=== PATIENT | female | born 1935 | race Two or more races ===

== ENCOUNTER 2022-05-09 18:43 | Emergency (ER) | payer OTHER ==
[~2022-05-09] VITALS: Ht 157.5 cm; Wt 50.8 kg
--- NOTE | 2022-05-09 18:50 | NUR ---
cervical collar placed
--- NOTE | 2022-05-09 18:55 | NUR ---
BIB [facility] FOR [facility]ARE FACILITY,C/O NECK PAIN TODAY,DENIES ANY TRAUMA
--- NOTE | 2022-05-09 19:25 | NUR ---
PT TAKEN TO RADIOLOGY FOR CT
--- NOTE | 2022-05-09 19:28 | NUR ---
RECEIVED REPORT FROM KIRIT SAINZ. PATIENT IS AAOX4. ABLE TO MAKE NEEDS KNOWN. WITH SOFT C COLLAR. CAME WITH CC OF NECKPAIN. VITALS CHECKED.
[2022-05-09] MEDS ORDERED: ACETAMINOPHEN 325 MG TABLET ONE (19:29)
[2022-05-09] MEDS ORDERED: ACETAMINOPHEN 325 MG TABLET PO ONE (19:30)
--- NOTE | 2022-05-09 19:48 | NUR ---
PT RETURNED TO ER BED [address]
[2022-05-09] MEDS ORDERED: ACET325C7 PO (20:20)
--- NOTE | 2022-05-09 22:01 | NUR ---
PT GOING BACK TO [facility]. REPORT GIVEN TO CARLOS AT [phone] [facility] ETA: 75-90 MIN
--- NOTE | 2022-05-09 23:37 | NUR ---
[facility] AT BED SIDE TO PE TEACHER THE PT
--- NOTE | 2022-05-09 23:50 | NUR ---
REPORT GIVEN TO EMT NETO OF [facility] [id number]
--- NOTE | 2022-05-10 00:13 | NUR ---
TRANSFERRED TO CARE FACILITY VIA AMBULANCE.
[2022-05-10 00:14] VITALS: BP 112/69
== END 2022-05-10 00:14 ==
LOC: ER 18:46
DX: S16.1XXA Strain of muscle, fascia and tendon at neck level, initial encounter (principal); S00.31XA Abrasion of nose, initial encounter; R51.9 Headache, unspecified; Z79.1 Long term (current) use of non-steroidal anti-inflammatories (NSAID); X58.XXXA Exposure to other specified factors, initial encounter; Y93.89 Activity, other specified; Y92.89 Other specified places as the place of occurrence of the external cause; Y99.8 Other external cause status
CPT/HCPCS: 70450-TC; 72125-TC

== ENCOUNTER 2022-05-25 19:48 | Emergency (ER) | payer OTHER ==
[~2022-05-25] VITALS: Ht 157.5 cm; Wt 59.0 kg
[~2022-05-25 19:48] MED LIST: ACET325C7 PO
[2022-05-25] MEDS ORDERED: ONDANSETRON HCL/PF 4 MG/2 ML VIAL ONE (20:20)
[2022-05-25] MEDS ORDERED: KETOROLAC TROMETHAMINE 15 MG/ML VIAL ONE (20:20)
--- NOTE | 2022-05-25 20:22 | NUR ---
[facility] FOR C/O R FLANK PAIN WITH HX OF KIDNEY STONES. PT AWAKE AND ALERT X4 BREATHING UNABORED 9/10 PAIN. CHANGED INTO GOWN AND PLACED ON MONITOR. MD WAS AT BEDSIDE FOR EVAL.
[2022-05-25] MEDS: IV NS 0.9% 1,000 ML BAG IV ONE (20:37)
[2022-05-25] MEDS: ONDANSETRON HCL/PF 4 MG/2 ML VIAL IVP ONE (20:37)
[2022-05-25] MEDS: KETOROLAC TROMETHAMINE INJ 30 MG/ML VIAL IV ONE (20:37)
--- NOTE | 2022-05-25 20:37 | NUR ---
20g IV STARTED AT . [facility] AT BEDSIDE.
[2022-05-25 20:52] LABS: BASOPHILS % (AUTO) 0.4 % (0.0-2.0); EOSINOPHILS % (AUTO) 0.8 % (0.0-6.0); HEMATOCRIT 31 % (33-45); HEMOGLOBIN 9.6 g/dL (11.5-14.8); LYMPHOCYTES # (AUTO) 1.1 K/uL (0.8-4.8); LYMPHOCYTES % (AUTO) 14.3 % (20.0-44.0); MEAN CORPUSCULAR HGB CONC 31 g/dl (31.0-36.0); MEAN CORPUSCULAR VOLUME 70 fL (82-100); MONOCYTES # (AUTO) 0.9 K/uL (0.1-1.30); MONOCYTES % (AUTO) 11.4 % (2.0-12.0); NEUTROPHILS # (AUTO) 5.9 K/uL (1.8-8.9); NEUTROPHILS % (AUTO) 73.1 % (43.0-81.0); PLATELET COUNT (AUTO) 562 K/uL (150-450); RED BLOOD CELL COUNT(AUTO) 4.44 MIL/uL (4.0-5.2)
[2022-05-25 21:03] LABS: CALCIUM, SERUM 9.1 mg/dL (8.5-10.1); CREATININE 1.3 mg/dL (0.6-1.3); POTASSIUM 3.9 mmol/L (3.5-5.1)
[2022-05-25 21:08] LABS: ALBUMIN 3.1 g/dL (3.4-5.0); BILIRUBIN,DIRECT 0.1 mg/dL (0.0-0.2); BILIRUBIN,TOTAL 0.3 mg/dL (0.2-1.0); TOTAL PROTEIN, SERUM 7.1 g/dL (6.4-8.2)
--- NOTE | 2022-05-25 21:25 | NUR ---
PT BEING TRANSPORTED TO CT
[2022-05-25 22:15] LABS: BILIRUBIN,URINE NEGATIVE (NEGATIVE); COLOR,URINE YELLOW (YELLOW); LEUKOCYTE ESTERASE ,URINE TRACE (NEGATIVE); NITRITE, URINE NEGATIVE (NEGATIVE); PROTEIN,URINE 2+ mg/dl (NEGATIVE); UGLUCOSE NEGATIVE (NEGATIVE); UROBILINOGEN,URINE 0.2 EU/dL (0.2)
[2022-05-25 22:17] LABS: EOSINOPHILS % (MANUAL) 1 % (0-4); LYMPHOCYTES % (MANUAL) 8 % (16-48); MONOCYTES % (MANUAL) 11 % (0-11.0); NEUTROPHILS % (MANUAL) 80 (42-76)
[2022-05-25 22:21] LABS: BACTERIA,URINE 1+ /HPF (None Seen); MUCUS,URINE Many /LPF (None Seen)
[2022-05-25] MEDS ORDERED: NITR100C6 PO (22:31)
[2022-05-25] MEDS ORDERED: NITROFURANTOIN/MONOHYDRATE MACROCRYSTALS 100 MG CAPSULE ONE (22:40)
[2022-05-25] MEDS: NITROFURANTOIN/MONOHYDRATE MACROCRYSTALS 100 MG CAPSULE PO ONE (22:45)
--- NOTE | 2022-05-25 22:49 | NUR ---
[facility] ETA [phone]
--- NOTE | 2022-05-25 23:42 | NUR ---
REPORT GIVEN TO ANY AND JAMIE FOR DC
--- NOTE | 2022-05-26 00:19 | NUR ---
[facility] AT BEDSIDE FOR DC BACK TO SN[facility]. BEDSIDE REPORT AND COPY OF CHART PRIVDED TO GEOPHYSICS PROFESSOR.
[2022-05-26 00:25] VITALS: BP 107/75
== END 2022-05-26 00:25 | disposition home or self-care (01) ==
LOC: ER 19:56
DX: R10.9 Unspecified abdominal pain (principal); I10 Essential (primary) hypertension; K21.9 Gastro-esophageal reflux disease without esophagitis; E03.9 Hypothyroidism, unspecified; Z87.442 Personal history of urinary calculi; Z96.653 Presence of artificial knee joint, bilateral
CPT/HCPCS: 99284; 74176; 96374; 96361; 96375; 51701; 85025; 80048; 83690; 80076; 81001; 36415; 85007; J2405; J7030; J1885